=== PATIENT | female | born 1970 | race Caucasian/White ===

== ENCOUNTER 2020-02-07 16:32 | Emergency (ER) | payer OTHER, SELFPAY ==
[2020-02-07 16:36] VITALS: BP 116/74; PULSE 64; RESP 12; TEMP 36.7; O2SAT 96; BMI 26.8
--- NOTE | 2020-02-07 16:50 | EKG12_ITS ---
Test Reason : NEAR SYNCOPE Blood Pressure : / mmHG Vent. Rate : 061 BPM Atrial Rate : 061 BPM P-R Int : 202 ms QRS Dur : 072 ms QT Int : 414 ms P-R-T Axes : 075 074 063 degrees QTc Int : 416 ms Normal sinus rhythm Normal ECG Confirmed by REBECCA SOSA, OLGA ([id number]), industrial editor VINAY SAAVEDRA ([id number]) on 02/12/2020 8:56:37 AM Referred By: GENO Confirmed By:OLGA FERNANDEZ MD
--- NOTE | 2020-02-07 16:53 | NURSING ---
NO OLD EKGS
[2020-02-07] MEDS: 0.9% Normal Saline 1,000 ML 1000 ML IV (17:27)
[2020-02-07 17:50] LABS: Anion Gap 3 (5-15); BUN 12 mg/dL (7-18); BUN/Creat Ratio 15.4 RATIO (10-20); Calcium,Total 9.4 mg/dL (8.5-10.1); Chloride 108 mmol/L (98-107); Creatinine, Serum 0.78 mg/dL (0.55-1.02); EST Glomerular Filtration Rate 84 mL/min (>60); Est Glom Filt Rate - Afr Amer 101 mL/min (>60); Estimated Creatinine Clearance 76.17 ml/min; Glucose 111 mg/dL (74-106); Potassium 3.6 mmol/L (3.5-5.1); Sodium Level 138 mmol/L (136-145)
[2020-02-07 17:59] LABS: Absolute Lymphocyte Count 1.29 X10^3/uL (0.83-4.51); Absolute Neutrophil Count 4.1 X10^3/uL (2.0-7.7); Basophil# 0.05 X10^3/uL; Basophil% 0.8 % (0-1); Eosinophil# 0.39 X10^3/uL; Eosinophils% 6.2 % (0-5); Hematocrit 40.9 % (37-47); Hemoglobin 13.1 g/dL (12.0-15.0); Lymphocyte # 1.29 X10^3/ul (4.0); Lymphocyte % 20.6 % (19-41); Mean Corpuscular Hgb 29.7 pg (27.0-32.0); Mean Corpuscular Volume 92.7 fL (81-99); Mean Platelet Vol. 10.9 fl (6.2-12.0); Monocyte# 0.37 X10^3/uL; Monocyte% 5.9 % (0-10); NRBC Flagged by Analyzer 0 % (0-5); Neutrophil # 4.14 X10^3/uL (2.7-7.7); Neutrophil % 66.2 % (47-70); Platelet Count 253 K/mm3 (150-450); RBC Distribution Width CV 12.5 % (11.6-14.6); RBC Distribution Width SD 42.5 fl (35.1-43.9); Red Blood Count 4.41 M/mm3 (4.2-5.4); White Blood Count 6.3 K/mm3 (4.4-11.0)
[2020-02-07 18:29] LABS: Internal QC Validated? YES +Cl - CLEAR BKGD; Pregnancy, Serum, hCG Quali. NEGATIVE Negative
--- NOTE | 2020-02-07 18:31 | ED.VISSUMM ---
- ER Visit Summary Date of Service: 02/07/20 Chief Complaint: Near syncope History of Present Illness: The patient is a [address] Benson. She reports that she had an episode of near syncope today while her breast was being compressed for mammogram. She states that this was not particularly painful, but her head was turned far to the side. She reports she began feeling diaphoretic and nauseated. She denies chest pain or palpitations. She not vomit. She did not feel short of breath. She did not actually lose consciousness. She has never had anything like this before. Review of systems: General: No fever, chills, cold sweats. Cardiovascular: No chest pain, palpitations. Respiratory: No cough, shortness of breath, dyspnea on exertion. Gastrointestinal: No abdominal pain, nausea, vomiting, diarrhea, melena, or hematochezia. Genitourinary: No dysuria, frequency, hematuria. Skin: No rash. Neuro: No headache, numbness, weakness. Physical Examination: Vitals: Stable. Afebrile. General: Well-nourished and well-developed. Head: Normocephalic atraumatic. Neck: Supple, no lymphadenopathy. No JVD. Nontender. Cardiovascular: Regular rate and rhythm. No murmurs. Respiratory: No respiratory distress. Clear to auscultation bilaterally. Abdominal: Soft, nontender, nondistended, normal bowel sounds. No guarding, rebound, or peritoneal signs. Back: Nontender. Extremities: Nontender, no edema. Skin: Normal color, no rash. Neurologic: Alert and oriented ?3. Cranial nerves II through XII are intact. Normal strength and sensation. Psych: Normal affect. Test Results: EKG is sinus at 62 with normal intervals. There is no evidence of Brugada syndrome. CBC shows eosinophils of 6. Chem-7 shows a chloride of 108 and glucose 111. test is negative. Emergency Department Course and Treatment: Patient was given a liter of normal saline. She is rested comfortably while here. She is asymptomatic. Treatment Plan: Patient be discharged instructions to follow-up with her primary care physician in 1 to 2 days if not improving. Return to the emergency department for any worsening symptoms. Disposition: To home in improved and stable condition. Impression: 1. Near syncope. 2. Vasovagal episode. This note was generated with Dragon dictation software. It may contain incorrect words, spelling, and punctuation that were not noted in review of the chart prior to signing ED Disposition - Plan for ED Patient: Instructions: ED Near Syncope Vasovagal Referrals: Bozena Winter MD [Primary Care Provider] - 1-2 Days if not improving
[2020-02-07 19:15] VITALS: BP 116/65; PULSE 77; RESP 17; O2SAT 100
== END 2020-02-07 19:18 | disposition home or self-care (01) ==
LOC: ED 17:03
PROVIDERS: Emergency Provider Emergency Medicine; PCP Internal Medicine
DX: R55 Syncope and collapse (principal)
CPT/HCPCS: 80048; 84703; 85025; 93005; 96360; 99285; J7030; A4216

== ENCOUNTER 2020-02-19 21:43 | Emergency (ER) | payer OTHER, SELFPAY ==
[2020-02-19 21:46] VITALS: BP 129/79; PULSE 86; RESP 17; TEMP 36.8; O2SAT 100; BMI 26.9
[2020-02-19 21:52] VITALS: BP 129/79; PULSE 85; RESP 17; O2SAT 100
--- NOTE | 2020-02-19 22:05 | EKG12_ITS ---
Test Reason : DYSRHYTHMIA Blood Pressure : / mmHG Vent. Rate : 075 BPM Atrial Rate : 075 BPM P-R Int : 178 ms QRS Dur : 080 ms QT Int : 384 ms P-R-T Axes : 064 066 050 degrees QTc Int : 428 ms Normal sinus rhythm with sinus arrhythmia Normal ECG Confirmed by RUDOLPH PETERSEN ([id number]), editor at large VINAY SAAVEDRA ([id number]) on 02/22/2020 10:28:36 AM Referred By: YUNIEL Confirmed By:RUDOLPH PETERSEN
--- NOTE | 2020-02-19 22:12 | ED.DCSUM_ITS ---
History of Present Illness Chief Complaint: Abd Pain Informant: Patient, Family Narrative: Patient is a 49-year-old female who presents to the emergency department for epigastric and left upper quadrant abdominal pain. This started around 8:30 PM tonight. She states that the pain comes and goes. It gets up to a 7 out of 10. She has not tried taking anything for this. She has never had this happen before in the past. She describes as an aching but does feel sharp into her back. At time of arrival to the emerge department all symptoms have resolved. She did get nauseous but never vomited. She denies any change in bowel habits including any diarrhea, constipation, blood in stool or black tarry stools. Denies any fevers or chills. She does have a history of cholecystectomy. Denies any urinary symptoms. She denies any chance of being . She denies any chest pain. She did get short of breath at the most severe point of the pain. She has had a mild headache all day that she tried taking NSAIDs for. Past Medical History - Allergies and Home Meds Allergies/Adverse Reactions: Allergies amoxicillin [From Augmentin] Allergy (Verified 02/19/20 21:43) Hives clavulanic acid [From Augmentin] Allergy (Verified 02/19/20 21:43) Hives Sulfa (Sulfonamide Antibiotics) Allergy (Verified 02/19/20 21:43) Hives Primary Care Physician: Bozena Winter MD [Primary Care Provider] - Prior records reviewed: Yes Past Medical History: None Surgical History: cholecystectomy Smoking Status: Never smoker Alcohol: Rare Drugs: None Review of Systems All systems negative except as indicated General: Denies: Chills, Fever, Sweats Eyes: Denies: Visual changes - bilaterally, Diplopia ENT: Denies: Rhinorrhea, Sore throat Cardiovascular: Denies: Chest pain, Palpitations Respiratory: Denies: Dyspnea, Cough, Dyspnea on exertion Gastrointestinal: Reports: Abdominal pain, Nausea. Denies: Vomiting, Diarrhea, Melena, Hematochezia Genitourinary: Denies: Dysuria, Hematuria, Frequency Musculoskeletal: Denies: Back pain, Extremity Pain Skin: Denies: Rash, Wounds Neurological: Reports: Headache. Denies: Weakness, Numbness Physical Exam Vital Signs/Narrative: Vital Signs Temp Pulse Resp BP Pulse Ox 02/19/20 21:52 85 17 129/79 H 100 02/19/20 21:46 98.2 F 86 17 129/79 H 100 Inital Vital Signs reviewed: Yes General: Well nourished, Well developed, No Acute Distress Head: Normocephalic, Atraumatic Eyes: Perrl, EOMI ENT: Moist mucous membranes, No rhinorrhea Neck: Supple, Nontender Cardiovascular: Regular rate, Regular rhythm, No murmurs Respiratory: No distress, CTA bilaterally, Chest nontender Abdomen: Soft, Nondistended, Normal bowel sounds, Tender - Epigastric to deep palpation. Negative for: Guarding, Rebound tenderness Back: Nontender, Normal Inspection Extremities: Nontender, No edema Skin: Normal color, No rash Neurological: Alert, Oriented x3, Cranial nerves II-XII grossly intact, Normal Strength, Normal Sensation Psychological: Normal affect, Normal Mood Diagnostic/Tx/Re-eval - EKG Initial EKG Interpretation: - - Rate of 75 bpm and normal sinus rhythm. Normal intervals. Normal axis. No ST elevations or depressions appreciated. No T wave abnormalities. Prior EKG for comparison. - Medical Decision Making Patient presents to the emergency department for intermittent abdominal pain. She is currently denying symptoms at this time. Upon arrival to ED vital signs within normal limits. She does have some tenderness but otherwise states that her symptoms have greatly improved to this point. Will check basic lab work at this time. Will treat with a GI cocktail. Patient's lab work was very unremarkable. No significant abnormality with her hepatic function panel or lipase. No elevated white blood cell count. Electrolytes within normal limits. After GI cocktail she states that this co mpletely resolved her symptoms. She does have a history of H. pylori now that she is thinking about it. Could be related to an ulcer although it only has been present for the past few hours. We will put her on Protonix in the meantime and have her follow-up with her PCP. She might benefit from a GI referral if this continues on. I did discuss return precautions including any worsening abdominal pain develop any blood in the stool or any fever/chills. She understands and is agreeable this plan. Will discharge home in stable condition. ED Disposition - Plan for ED Patient: Disposition: Home or Assisted Living Diagnosis: Abdominal pain Instructions: Peptic Ulcer, ED Abdominal Pain Unkn Cause Fem Prescriptions: Pantoprazole Sodium [Protonix] 40 mg PO DAILY 30 Days #30 tab Transmission Status: Received by [facility] [facility] Referrals: Bozena Winter MD [Primary Care Provider] -
[2020-02-19] MEDS: Mag Hydrox/Al Hydrox/Simeth 30 ML UDC PO (22:34)
[2020-02-19 22:35] LABS: ALB/GLOB Ratio 0.9 RATIO (0.9-2.4); AST(SGOT) 41 U/L (15-37); Alanine Aminotransfer ALT/SGPT 29 U/L (13-56); Albumin, Serum 3.6 g/dL (3.2-5.0); Alkaline Phosphatase 78 U/L (45-117); Anion Gap 6 (5-15); BUN 12 mg/dL (7-18); BUN/Creat Ratio 13.3 RATIO (10-20); Calcium,Total 9.8 mg/dL (8.5-10.1); Chloride 109 mmol/L (98-107); EST Glomerular Filtration Rate 71 mL/min (>60); Est Glom Filt Rate - Afr Amer 86 mL/min (>60); Estimated Creatinine Clearance 66.01 ml/min; Globulin 4.1 g/dL (2.2-4.2); Glucose 96 mg/dL (74-106); Lipase 164 U/L (73-393); Potassium 3.7 mmol/L (3.5-5.1); Protein, Total 7.7 g/dL (6.4-8.2); Sodium Level 138 mmol/L (136-145)
[2020-02-19 22:36] LABS: Absolute Lymphocyte Count 2.08 X10^3/uL (0.83-4.51); Absolute Neutrophil Count 3.5 X10^3/uL (2.0-7.7); Basophil# 0.04 X10^3/uL; Basophil% 0.6 % (0-1); Eosinophil# 0.25 X10^3/uL; Eosinophils% 3.8 % (0-5); Hematocrit 37.9 % (37-47); Hemoglobin 12.4 g/dL (12.0-15.0); Lymphocyte # 2.08 X10^3/ul (4.0); Lymphocyte % 31.9 % (19-41); Mean Corp Hgb Conc 32.7 g/dL (32-36); Mean Corpuscular Hgb 29.3 pg (27.0-32.0); Mean Corpuscular Volume 89.6 fL (81-99); Mean Platelet Vol. 11.1 fl (6.2-12.0); Monocyte# 0.62 X10^3/uL; Monocyte% 9.5 % (0-10); NRBC Flagged by Analyzer 0 % (0-5); Neutrophil # 3.52 X10^3/uL (2.7-7.7); Neutrophil % 53.9 % (47-70); Platelet Count 275 K/mm3 (150-450); RBC Distribution Width CV 12.2 % (11.6-14.6); RBC Distribution Width SD 40.2 fl (35.1-43.9); Red Blood Count 4.23 M/mm3 (4.2-5.4); White Blood Count 6.5 K/mm3 (4.4-11.0)
[2020-02-19 22:57] LABS: Internal QC Validated? YES +Cl - CLEAR BKGD; Pregnancy, Serum, hCG Quali. NEGATIVE Negative
[2020-02-19 23:28] VITALS: RESP 16
[2020-02-19 23:34] LABS: Bacteria 0 SEEN /hpf (None Seen); Mucous, Urine 0 SEEN /hpf (<or=2+); Red Blood Cells-Urine 0 SEEN /hpf (0-5); Squamous Epithelial Cells - UA 0 SEEN /hpf (5-10); White Blood Cells 0 SEEN /hpf (0-5)
[2020-02-19 23:35] LABS: Color, Urine Yellow (Yellow); Glucose, Dipstick Normal (Normal); Ketone-Dipstick 5 mg/dl (Negative); Leukocyte Esterase-Dipstick Negative /ul (Negative); Nitrite-Dipstick Negative (Negative); Occult Blood-Urine Negative /ul (Negative); Protein-Dipstick Negative (Negative); Urine Bilirubin Dipstick Negative (Negative); Urine Clarity Clear (Clear); Urine Urobilinogen Normal (Normal)
[2020-02-19 23:54] LABS: Amorphous Sediment 1+
== END 2020-02-19 23:28 | disposition home or self-care (01) ==
LOC: ED 23:18
PROVIDERS: Emergency Provider Emergency Medicine; PCP Internal Medicine
DX: R10.13 Epigastric pain (principal); R10.12 Left upper quadrant pain; R11.0 Nausea; R06.00 Dyspnea, unspecified; R51 Headache; Z87.11 Personal history of peptic ulcer disease
CPT/HCPCS: 80053; 81001; 83690; 84484; 84703; 85025; 93005; 99285; A4216

== ENCOUNTER 2021-02-26 09:38 | Day surgery (SDC) | payer OTHER, SELFPAY ==
--- NOTE | 2021-02-16 10:46 | HP.PCM_ITS ---
History and Physical Date of Admission: 02/26/21 HPI: The patient is a 50 year old female presenting for pre-operative visit. She is scheduled for Hysteroscopy D&C and polypectomy, for abnormal uterine bleeding and polyps on 02/26/2021. Procedure discussed along with risks, benefits and complications. Other alternatives discussed for management. Consent form signed? Yes. ? ? PAST MEDICAL HISTORY PAST MEDICAL HISTORY Diagnosis Date ? Abnormal glandular Papanicolaou smear of cervix 1996 ? Abn. Pap smear (cervix) ? Acne ? ? Benign paroxysmal positional vertigo ? ? Esophageal reflux ? ? Essential hypertension, benign 1992 ? ? PAST SURGICAL HISTORY PAST SURGICAL HISTORY Procedure Laterality Date ? CERVIX UTERI CONIZA LP ELCTRO EXCI ? 1994 ? leep ? EGD W/O OR W/BRUSH/WASH ? ? EGD ? LAP CHOLECYSTECT/CHOLANGIOGRAPHY ? 11/12/09 ? Normal IOC ? PAST SURGICAL HISTORY OF ? ? ? septoplasty ? REMOVAL OF TONSILS,<12 Y/O ? 2002 ? ? ? CURRENT MEDICATIONS Current Outpatient Medications Medication Sig Dispense Refill ? tranexamic acid (LYSTEDA) 650 mg tablet Take 2 tablets by mouth three t imes daily as needed (heavy menstrual bleeding) for up to 5 days. 30 tablet 2 ? fluticasone (FLONASE) 50 mcg/actuation nasal spray Use 2 Sprays in each nostril once daily. Rinse mouth after use. 1 Bottle 5 ? pantoprazole DR (PROTONIX) 40 mg tablet Take 1 tablet by mouth once daily. 30 tablet 0 ? mv,Ca,min/iron/FA/guarana/caff (ONE-A-DAY WOMEN'S ACTIVE ORAL) Take by mouth. ? ? ? No current facility-administered medications for this visit. ? ? ALLERGIES: Augmentin [Amoxicillin-Pot Clavulanate], Cats, Dogs, Dust, Seasonal Allergies, Sulfamethoxazole, Trees, and Weeds [Other] ? PERSONAL HISTORY: SOCIAL HISTORY Social History ? Tobacco Use ? Smoking status: Never Smoker ? Smokeless tobacco: Never Used Vaping Use ? Vaping Use: Never used Substance Use Topics ? Alcohol use: Yes ? ? Comment: Rarely ? Drug use: No ? FAMILY HISTORY: FAMILY HISTORY FAMILY HISTORY Problem Relation Age of Onset ? Diabetes Mother ? ? Hypertension Mother ? ? Heart Mother ? ? Open Heart Surgery ? Kidney Disease Mother ? ? stage 4 ? other (CVA) Mother ? ? other (Other, dementia) Mother ? ? other (Other, enlarged prostate) Father ? ? enlarged prostate ? Hypertension Paternal Grandmother ? ? Arthritis Paternal Grandmother ? ? other (Other) Paternal Grandmother ? ? irregular heartbeat ? Cancer Paternal Grandfather ? ? prostate, ? Hypertension Maternal Grandmother ? ? Stroke Maternal Grandmother ? ? TIA's ? Diabetes Maternal Grandfather ? ? Heart Maternal Grandfather ? ? Cancer Maternal Grandfather ? ? Heart Brother ? ? [place] @ age 27 / open heart surgery ? Thyroid Brother ? ? Asthma Brother ? ? Blood Disease Sister ? ? MGUS ? Asthma Sister ? ? Breast Cancer Other ? ? Paternal Great-Aunt ? Breast Cancer Other ? ? fathers cousin of breast cancer ? ? REVIEW OF SYMPTOMS: GENERAL: denies fevers or chills ENDOCRINOLOGY: has not been on steroids Cardiology : denies palpitations or chest pain Respiratory: denies SOB or cough Hematology: denies history of prolonged bleeding or easy bruising or VTE Allergy: Denies history of personal or family history of allergy to anesthesia ? PHYSICAL EXAMINATION: ? VITALS: Blood pressure 116/82, pulse 84, resp. rate 16, height 5' 5.25 (1.657 m), weight 143 lb (64.9 kg), last menstrual period 02/08/2021. ? GENERAL: The patient is well nourished, well hydrated in no acute distress. , The patient is oriented to time, place, and person. NECK: Supple. No lynphadenopathy, normal thyroid, no thyromegaly. LUNGS: Clear to auscultation bilaterally. no wheezes, rhonchi or rales HEART: Regular rate and rhythm, Normal heart sounds and No murmurs or gallops ? IMPRESSION: aub and endometrial polyps ? PLAN: The risks/benefits/alternatives and personal involved for the planned hysteroscopy D&C with polypectomy were reviewed with the patient. Her questions were answered to her satisfaction and she desires to proceed. Consent was signed. I reviewed with her postop instructions and expectations. ? ? I have reviewed and updated past medical and surgical history, medications and allergies This H&P was completed in my office on 02/16/2021 Assessment & Plan Assessment/Plan (1) Abnormal uterine bleeding (AUB): (2) Endometrial polyp:
[2021-02-25 17:12] LABS: Hematocrit 35.7 % (37-47); Hemoglobin 11.6 g/dL (12.0-15.0); Mean Corp Hgb Conc 32.5 g/dL (32-36); Mean Corpuscular Hgb 29.2 pg (27.0-32.0); Mean Corpuscular Volume 89.9 fL (81-99); Mean Platelet Vol. 10.6 fl (6.2-12.0); Platelet Count 328 K/mm3 (150-450); RBC Distribution Width CV 12.5 % (11.6-14.6); RBC Distribution Width SD 41.3 fl (35.1-43.9); Red Blood Count 3.97 M/mm3 (4.2-5.4); White Blood Count 9.5 K/mm3 (4.4-11.0)
[2021-02-26] VITALS (8 sets, daily range): BP systolic 111–140; BP diastolic 64–82; PULSE 66–77; RESP 16; TEMP 35.7–36.6; O2SAT 99–100; BMI 24.5
[2021-02-26 10:06] LABS: Internal QC Validated? YES +Cl - CLEAR BKGD; Pregnancy, Urine Negative Negative
[2021-02-26] MEDS: Celecoxib 200 MG Capsule 400 MG PO (10:22)
[2021-02-26] MEDS: Lidocaine 1% /Epi 1:100 (20ml) 20 ML Vial (11:38)
--- NOTE | 2021-02-26 11:45 | EMB_PTH ---
PATIENT: RODRIGO HAYESCA LOC: [facility] – [place], [place] U#:[id number] AGE/SX: 50/F ROOM: RE02/26/[address]: Dr. Pramod Feldman MD : 1970 BED: DIS: 02/26/2021 SPEC #: [id number] RECD: 02/26/21 13:05 STATUS: SONIDO REAlejo #: [id number] SEAN: 02/26/21 11:[address]: Pramod eFldman DEPT: SURGICAL PATHOLOGY RECD BY: Leilani Don ENTERED: 02/26/21 13:43 SP TYPE: ENDOM BX/C OTHR DR: Dr. Bozena Winter MD Tissues: Endometrium, NOS Procedures: Surgery Specimen Level IV HEADER OPERATION: Hysteroscopy, D & C Symphion PRE-OP DIAGNOSIS: Endometrial polyp, abnormal uterine bleeding TISSUE SUBMITTED: Endometrial curettings and endometrial polyp MICROSCOPIC DIAGNOSIS Endometrial curettings and polyp: Proliferative endometrium. Fragments of myometrium with focal adenomyosis. See comment. FRANCIE:alexandra 02/27/2021 COMMENT Clinical correlation and appropriate follow up are necessary. MICROSCOPIC DESCRIPTION Slides are reviewed. GROSS DESCRIPTION Received in fixative is one container labeled with the patient's name and designated endometrial curettings and endometrial polyp. The specimen consists of multiple irregular fragments of lowe-pink soft tissue mixed with blood clot that in aggregate measure 3 x 2.5 x 0.1 cm. The entire specimen is submitted in one cassette. / FRANCIE:alexandra 02/26/21 TC:5 CPT: 97996
--- NOTE | 2021-02-26 11:51 | OP.PCM_ITS ---
Problems Associated Problem List Diagnoses (1) Abnormal uterine bleeding (AUB): (2) Endometrial polyp: Report of Operation Date of Procedure: 02/26/21 Pre-Operative Diagnosis: Abnormal uterine bleeding, endometrial polyp Post-Operative Diagnosis: Same Surgery/Procedure Performed:: Hysteroscopy D&C with polyp resection Description of Surgical Findings:: Normal-appearing cervix and vagina. Endometrium is normal in appearance with 2 polyps noted, one anteriorly and 1 posteriorly. Both tubal ostia were identified. Normal endocervical canal Surgeon: Molly Feldman manager skilled: None Type of Anesthesia: MAC/Supplemental/Local Anesthesiologist: Shayy Henry Special Medications: none Specimen's removed: Endometrial curettings and polyp Drains: None Estimated Blood Loss (mL): 10 Fluids Replaced: 400 cc Description of Procedure: The patient was taken to the OR where she was prepped and draped in dorsal lithotomy position. The weighted speculum was placed in the vagina and the anterior lip of the cervix was grasped with a single-tooth tenaculum. A paracervical block was administered with [1% lidocaine with 1- 100,000 epinephrine solution]. The cervix was dilated serially with Hegar dilators. The Symphion hysteroscope was placed into the uterine cavity and the above findings were noted. Bilateral tubal ostia [were] identified. The Symphion resection device was readied and inserted. The polyps were resected. Then a visual dilation and curettage was performed with the device. The instruments were removed from the vagina. The specimen was handed off and sent to pathology. All sponge and needle counts were correct. Vaginal sweep was performed by me. The patient was awakened and taken to the recovery room in stable condition. Calculated hysteroscopic fluid deficit is 450 cc Grafts/Implants Used: None Procedure Start Time: 11:38 Procedure Stop Time: 11:48 Complications None Admit VTE Documentation VTE Present on Admission: No VTE Mechan Device Prophylaxis: SCD's VTE Pharm Prophylaxis ordered?: No Reason prophylaxis not ordered:: Procedure Not Indicated
--- NOTE | 2021-02-26 11:58 | PCM.DC ---
Discharge Instructions Diet Discharge Diet: No restrictions Activity May resume sexual activity in: 2 weeks Lifting Restrictions: none Dressing / Incision Call your doctor if your incision/area has: Sudden Increased Bleeding and Foul Smelling Discharge Call your doctor if you observe: Fever of 101 or Higher and Using more than 1 pad per hour (for 2 hrs in a row) Follow Up Care Please Follow Up With: Molly Feldman MD When: 2-4 weeks or as needed. Call [phone] to make an appointment or with any concerns. Test Results: Test results from this visit will be discussed in further detail at your follow-up appointment, if applicable. Discharge Plan Admission Primary Reason for Your Visit: endometrial polyps, D&C Attending Provider: Molly Feldman Primary Care Provider: Bozena Winter Instructions Patient Instructions: Hysteroscopy Discharge Orders/Prescriptions Prescriptions: No Action multivitamin Tablet 1 tab PO DAILY RF: 0 Referrals / Follow Up: Bozena Winter MD [Primary Care Provider] - Disposition Disposition (needs filled in before D/C Order can be placed): Home, Self Care
== END 2021-02-26 13:16 | disposition home or self-care (01) ==
LOC: SDC 09:39 → AC 09:39
PROVIDERS: PCP Internal Medicine; Referring Provider Obstetrics & Gynecology; Visit Provider Obstetrics & Gynecology
PROC: 0UB98ZZ Excision of Uterus, Via Natural or Artificial Opening Endoscopic (ICD-10-PCS; CPT 58558; principal; 2021-02-26 11:30)
DX: N84.0 Polyp of corpus uteri (principal); N93.9 Abnormal uterine and vaginal bleeding, unspecified
CPT/HCPCS: 00952; 58558; 36415; 81025; 85027; 87426; 88305; C9803; J7120; J2405

== ENCOUNTER 2023-04-29 09:13 | Emergency (ER) | payer OTHER, SELFPAY ==
[2023-04-29 09:14] VITALS: BP 134/77; PULSE 90; RESP 16; TEMP 36; O2SAT 97; BMI 26.8
--- NOTE | 2023-04-29 09:29 | EKG12_ITS ---
Test Reason : Blood Pressure : / mmHG Vent. Rate : 085 BPM Atrial Rate : 085 BPM P-R Int : 184 ms QRS Dur : 056 ms QT Int : 332 ms P-R-T Axes : 062 055 043 degrees QTc Int : 395 ms Normal sinus rhythm Septal infarct , age undetermined Abnormal ECG Confirmed by MIAN SOSA, GOPI ([id number]), medical transcription editor CRISTY BERRY ([id number]) on 05/03/2023 12:54:59 PM Referred By: Confirmed By:VINICIO PAPPAS MD
--- NOTE | 2023-04-29 09:30 | EX.ED.DYSGE1 ---
HPI History of Present Illness Chief Complaint: Abd Pain Informant: patient and spouse/S.O. Narrative Narrative: 52-year-old female presenting to the emergency room with epigastric pain. Patient states this week she had a tetanus shot on Tuesday and a shingles vaccination. She states initially she was given a saline shot and was called back later to get the shingles vaccination. She underwent some postvaccination issues such as fever and arm soreness. She was taking Tylenol and anti-inflammatories. This morning she attempted to go to work. She had a small breakfast sandwich, asvannah tea, as well as some anti-inflammatories. She states that she got a severe pain in her epigastrium that radiated into her back and it made her short of breath. She states that she got lightheaded and she laid down. Her symptoms have improved but are still present. She denies any arm or leg symptoms. No fever today. She has had prior cholecystectomy. No familial history of DVT PE or aortic dissection/aneurysm. She is a non-smoker. She states this reminds her of a pain that she had in 2019 when she came to the emergency department. It was felt at that time to be GI related and possibly an ulcer. She states that she has not been taking any antacid medicines and she has not had any difficulties/pain until today. [facility] Medical History History of ulceration Hypertension Non-smoker Poison cyrus Wears glasses Home Medications multivitamin 1 tab PO DAILY 02/18/21 [History Last Taken Unknown] pantoprazole 40 mg tablet,delayed release (Protonix) 40 mg PO DAILY #14 tabs 04/29/23 [Rx Last Taken Unknown] Allergy/AdvReac Type Severity Reaction Status Date / Time amoxicillin [From Augmentin] Allergy Hives Verified 02/26/21 09:54 clavulanic acid Allergy Hives Verified 02/26/21 09:54 [From Augmentin] Sulfa (Sulfonamide Allergy Hives Verified 02/26/21 09:54 Antibiotics) Surgical History Hx laparoscopic cholecystectomy Hx of appendectomy Social History Smoking Status: Never smoker ROS ROS ED Constitutional Constitutional ED: Denies chills or weight loss Eyes Eyes: Denies change in vision or diplopia ENT ENT ED: Denies ear pain, rhinorrhea or sore throat Cardiovascular Cardiovascular: Denies chest pain, orthopnea, palpitations or racing heartbeat Respiratory/Chest Respiratory/Chest: Reports dyspnea; Denies cough or orthopnea Gastrointestinal Gastrointestinal: Reports abdominal pain; Denies diarrhea, melena, nausea or vomiting Genitourinary Genitourinary ED: Denies dysuria, hematuria or urinary frequency Musculoskeletal Musculoskeletal: Reports back pain; Denies arthralgias, myalgias or neck pain Integumentary Denies abscess or rash Neurologic Neurologic: Denies headache(s), paresthesias or weakness Psychiatric Psychiatric: Denies anxiety, depression, suicidal ideation or suicidal thoughts Endocrine Endocrinology: Denies polydipsia, polyphagia or polyuria Allergic/Immunologic Allergic/Immunologic ED: Denies mouth swelling, tongue swelling or urticaria EXAM Physical Exam Const Vital Signs: 04/29/23 09:14 04/29/23 10:41 Temperature 96.8 F L Temperature Source Temporal Pulse Rate 90 87 Respiratory Rate 16 18 Blood Pressure 134/77 H 132/81 H Blood Pressure Mean 96 98 Pulse Ox 97 98 Oxygen Delivery Method Room Air Room Air Positive well nourished and well developed General Appearance ED: well developed HEENT Reports normocephalic, head/scalp atraumatic and moist mucous membranes Eyes PERRL and EOMs intact bilaterally Neck no lymphadenopathy, supple and no JVD Resp normal respiratory effort and clear to auscultation bilaterally Cardio regular rate, regular rhythm and no murmurs GI normal to inspection, nondistended, normoactive bowel sounds and non-tender Inspection: Negative for abdominal distention Auscultation: normoactive bowel sounds Palpation: soft; Negative for guarding or rebound tenderness present Back/Spine no CVA tenderness and normal ROM Extremity normal to inspection Extremity Narrative: +2 dorsalis pedis pulse bilaterally lower extremity skin appears normal. General Extremety ED: Negative for edema General Extremity: Negative for edema Neuro oriented x3 and CN's II-XII intact bilaterally Sensorium / Orientation: alert Motor Exam: strength 5/5 throughout Psych mental status grossly normal Mood & Affect: Negative for depressed or tearful Skin no rashes or lesions noted and no wounds MDM MDM MDM Narrative Medical decision making narrative: Patient's white count is 4.5. Slight elevation in her transaminases (AST 144 ALT 76 alk phos 141). Troponin is less than 3. Lipase is 52. Glucose 108 creatinine 0.80. BUN of 13 My independent interpretation of the plain film chest x-ray is no acute process. Patient received a GI cocktail and Protonix. At this point gastritis or GI pathology is certainly high on her list. I think ACS DVT PE and dissection are very low likelihood. There is no evidence of a significant bleed that would require admission. She has a normal bilirubin but slight elevation of transaminases. Should the patient continue to have symptoms would recommend return to the emergency department or follow-up. She will be placed on 2 weeks of Protonix. Avoidance of anti-inflammatories is recommended. Lab Data Attestation: I reviewed the patient's lab results. Labs: Laboratory Results - last 24 hr 04/29/23 09:47 WBC 4.5 RBC 4.21 Hgb 12.4 Hct 38.5 MCV 91.4 MCH 29.5 MCHC 32.2 RDW Std Deviation 41.3 RDW Coeff of Roel 12.4 Plt Count 235 MPV 10.1 Immature Gran % (Auto) 0.400 Neut % (Auto) 63.5 Lymph % (Auto) 21.6 [place] % (Auto) 11.1 H Eos % (Auto) 2.7 Baso % (Auto) 0.7 Absolute Neuts (auto) 2.9 Absolute Lymphs (auto) 0.97 Nucleated RBC % 0 Sodium 140 Potassium 3.4 L Chloride 107 Carbon Dioxide 26.0 Anion Gap 7 BUN 13 Creatinine 0.80 Estim Creat Clear Calc 71.84 Est GFR (MDRD) Af Amer 97 Est GFR (MDRD) Non-Af 80 BUN/Creatinine Ratio 16.2 Glucose 108 H Calcium 9.7 Total Bilirubin 0.30 Direct Bilirubin 0.12 AST 144 H ALT 76 H Alkaline Phosphatase 141 H Troponin I High Sens < 3 L Total Protein 7.8 Albumin 3.2 Globulin 4.6 H Lipase 52 Radiography Diagnostic Testing: Clinical Impression(s) from Imaging Studies Chest X-Ray 04/29/23 10:21 IMPRESSION: No acute cardiopulmonary disease. Electronically Signed: Cheikh Kingston MD at 10:40 EDT , EKG Initial EKG: Attestation: I personally reviewed and interpreted this EKG as follows: Comments: Normal sinus rhythm with a ventricular rate of 85 bpm. No concerning features of ACS noted. Discharge Plan Triage Chief Complaint: Abd Pain ED Provider: Maykel Abdalla Dx/Rx/DC Orders Clinical Impression: Gastritis, Elev transaminase/LDH Instructions: Understanding Gastritis Prescriptions: New pantoprazole [Protonix] 40 mg tablet,delayed release (DR/EC) 40 mg PO DAILY Qty: 14 0RF No Action multivitamin Tablet 1 tab PO DAILY Primary Care Provider: CATHI ALEXANDER Referrals: Bozena Winter MD [Med Staff - Survey Methodologist] - 1-2 Weeks
[2023-04-29] MEDS: Pantoprazole Sodium 40 MG Tablet PO (09:44)
[2023-04-29] MEDS: Mag Hydrox/Al Hydrox/Simeth 30 ML UDC PO (09:48)
[2023-04-29 09:55] LABS: Absolute Lymphocyte Count 0.97 X10^3/uL (0.83-4.51); Absolute Neutrophil Count 2.9 X10^3/uL (2.0-7.7); Basophil# 0.03 X10^3/uL; Basophil% 0.7 % (0-1); Eosinophil# 0.12 X10^3/uL; Eosinophils% 2.7 % (0-5); Hematocrit 38.5 % (37-47); Hemoglobin 12.4 g/dL (12.0-15.0); Lymphocyte # 0.97 X10^3/ul (0.83-4.51); Lymphocyte % 21.6 % (19-41); Mean Corp Hgb Conc 32.2 g/dL (32-36); Mean Corpuscular Hgb 29.5 pg (27.0-32.0); Mean Corpuscular Volume 91.4 fL (81-99); Mean Platelet Vol. 10.1 fl (6.2-12.0); Monocyte% 11.1 % (0-10); NRBC Flagged by Analyzer 0 % (0-5); Neutrophil # 2.85 X10^3/uL (2.7-7.7); Neutrophil % 63.5 % (47-70); Platelet Count 235 K/mm3 (150-450); RBC Distribution Width CV 12.4 % (11.6-14.6); RBC Distribution Width SD 41.3 fl (35.1-43.9); Red Blood Count 4.21 M/mm3 (4.2-5.4); White Blood Count 4.5 K/mm3 (4.4-11.0)
[2023-04-29 10:13] LABS: AST(SGOT) 144 U/L (15-37); Alanine Aminotransfer ALT/SGPT 76 U/L (13-56); Albumin, Serum 3.2 g/dL (3.2-5.0); Alkaline Phosphatase 141 U/L (45-117); Anion Gap 7 (5-15); BUN 13 mg/dL (7-18); BUN/Creat Ratio 16.2 RATIO (10-20); Bilirubin, Direct 0.12 mg/dL (0.00-0.30); Calcium,Total 9.7 mg/dL (8.5-10.1); Chloride 107 mmol/L (98-107); EST Glomerular Filtration Rate 80 mL/min (>60); Est Glom Filt Rate - Afr Amer 97 mL/min (>60); Estimated Creatinine Clearance 71.84 ml/min; Globulin 4.6 g/dL (2.2-4.2); Glucose 108 mg/dL (74-106); Lipase 52 U/L (13-75); Potassium 3.4 mmol/L (3.5-5.1); Protein, Total 7.8 g/dL (6.4-8.2); Sodium Level 140 mmol/L (136-145); Troponin-I HS < 3 pg/mL (3.0-54.0)
--- NOTE | 2023-04-29 10:21 | RAD_ITS ---
EXAM: XR CHEST, 1 VIEW CLINICAL INDICATION: pain TECHNIQUE: Frontal view of the chest. COMPARISON: No relevant prior studies available. FINDINGS: LUNGS AND PLEURAL SPACES: No consolidation or edema. No pneumothorax. No effusion. HEART: Normal heart size. MEDIASTINUM: No mediastinal or hilar mass. BONES/JOINTS: No acute abnormality. RAD/Chest 1 View (Portable) IMPRESSION: No acute cardiopulmonary disease. Electronically Signed: Cheikh Kingston MD at 10:40 EDT ,
--- NOTE | 2023-04-29 10:37 | ED.RN ---
Ambulatory to bathroom, gait steady.
[2023-04-29 10:41] VITALS: BP 132/81; PULSE 87; RESP 18; O2SAT 98
== END 2023-04-29 11:05 | disposition home or self-care (01) ==
LOC: ED 09:55
PROVIDERS: Emergency Provider Emergency Medicine; PCP Pharmacist Pharmacist Clinician (PhC)/ Clinical Pharmacy Specialist; Visit Provider Emergency Medicine
DX: K29.70 Gastritis, unspecified, without bleeding (principal); I10 Essential (primary) hypertension; R74.01 Elevation of levels of liver transaminase levels; Z90.49 Acquired absence of other specified parts of digestive tract
CPT/HCPCS: 71045; 80048; 80076; 83690; 84484; 85025; 93005; 99283; A4216